=== PATIENT | female | born 1990 | race Caucasian/White ===

== ENCOUNTER 2018-01-21 18:22 | Emergency (ER) | payer OTHER ==
[~2018-01-21] VITALS: Ht 154.9 cm; Wt 53.5 kg
== END 2018-01-21 23:01 | disposition home or self-care (01) ==
LOC: ER 18:22
DX: O20.0 Threatened abortion (principal)

== ENCOUNTER 2018-03-14 05:56 | Day surgery (SDC) | payer OTHER ==
[2018-03-14] MEDS ORDERED: DOXYCYCLINE HY100 MG PO (08:55)
[2018-03-14] MEDS ORDERED: CODE1TAB37 PO (08:55)
== END 2018-03-14 12:20 | disposition home or self-care (01) ==
LOC: CIR.AMB 05:56
DX: N84.0 Polyp of corpus uteri (principal); D25.0 Submucous leiomyoma of uterus

== ENCOUNTER 2021-07-06 10:15 | Inpatient (IN) | payer OTHER ==
[~2021-07-06] VITALS: Ht 154.9 cm; Wt 3.6 kg
[~2021-07-06 10:15] MED LIST: CODE1TAB37 PO; DOXYCYCLINE HY100 MG PO
[2021-07-06] MEDS ORDERED: PRENAT PO (12:35)
[2021-07-07] MEDS ORDERED: PRENATAL + DHA1 EAC1 (09:31)
[2021-07-10] MEDS ORDERED: DOCUSATE SODIU100 MG PO (12:23)
[2021-07-10] MEDS ORDERED: IBUPROFEN600 MG PO (12:23)
[2021-07-10] MEDS ORDERED: ACETAMINOPHEN-1 EAC2 PO (12:23)
== END 2021-07-10 14:05 | disposition home or self-care (01) | DRG 788 ==
LOC: OB/GYN 07-07 06:25 → O/R 07-07 06:25 → LDR 07-07 10:15 → OB/GYN 07-07 14:28
PROVIDERS: ADMIT Obstetrics & Gynecology; ATTEND Obstetrics & Gynecology
PROC: 4A1HXCZ Monitoring of Products of Conception, Cardiac Rate, External Approach (ICD-10-PCS; 2021-07-07)
PROC: 10D00Z1 Extraction of Products of Conception, Low, Open Approach (ICD-10-PCS; principal; 2021-07-07 15:30)
DX: O32.1XX0 Maternal care for breech presentation, not applicable or unspecified (principal); Z3A.39 39 weeks gestation of pregnancy; Z37.0 Single live birth; Z20.822 Contact with and (suspected) exposure to COVID-19